=== PATIENT | male | born 1970 | race Caucasian/White ===

== ENCOUNTER 2018-12-04 08:03 | Emergency (ER) | payer OTHER ==
[~2018-12-04] VITALS: Ht 172.7 cm; Wt 97.2 kg
[2018-12-04 08:05] VITALS: BP 133/74; PULSE 80; RESP 18; Ht 172.7 cm; Wt 97.2 kg
[2018-12-04] MEDS ORDERED: NAPR-985 PO (09:58)
--- NOTE | 2018-12-04 10:06 | ERD ---
ER Documentation Chief Complaint Chief Complaint urination problem x3 days right rib pain HPI 48-year-old male presenting with dysuria and right rib pain. Patient states his has an infection he is worried he may have infection. He denies any ear pain to his flanks. Denies any back pain. Has not had any fevers. Denies any penile discharge. Denies testicular pain. Denies medical problems. NKDA. Surgical history denies. Social history denies ROS All systems reviewed and are negative except as per history of present illness. Medications Home Meds Active Scripts Naproxen* (Naprosyn*) 500 Mg Tablet, 500 MG PO BID PRN for PAIN AND/OR INFLAMMATION, #30 TAB Prov:VIOLET GUERRERO PA-C 12/04/18 PMhx/Soc Medical and Surgical Hx: pt denies Medical Hx, pt denies Surgical Hx Hx Alcohol Use: No Hx Substance Use: No Hx Tobacco Use: No FmHx Family History: No diabetes, No coronary disease, No other Physical Exam Vitals Vital Signs Date Temp Pulse Resp B/P (MAP) Pulse Ox O2 O2 Flow FiO2 Time Delivery Rate 12/04/18 97.5 80 18 133/74 99 08:05 (93) Physical Exam GENERAL: The patient is well-appearing, well-nourished, in no acute distress HEENT: Atraumatic. Conjunctivae are pink. Pupils equal, round, and reactive to light. There is no scleral icterus. Tympanic membranes clear bilaterally. Oropharynx clear. NECK: C-spine is soft and supple. There is no meningismus. There is no cervical lymphadenopathy. CHEST: Clear to auscultation bilaterally. There are no rales, wheezes or rhonchi. HEART: Regular rate and rhythm. No murmurs, clicks, rubs or gallops. ABDOMEN:Soft, nontender and nondistended. Good bowel sounds. No rebound or guarding. No gross peritonitis. No gross organomegaly or masses. BACK: No midline or flank tenderness. Results 24 hrs Laboratory Tests Test 12/04/18 08:45 Bedside Urine pH (LAB) 8.5 Bedside Urine Protein (LAB) 1+ Bedside Urine Glucose (UA) Negative Bedside Urine Ketones (LAB) Negative Bedside Urine Blood Negative Bedside Urine Nitrite (LAB) Negative Bedside Urine Leukocyte Esterase (L Negative Procedures/MDM DIAGNOSTIC IMAGING REPORT Patient: CHAPO CRUZ : 1970 Age: 48 Sex: M MR #: [id number] DOS: 12/04/18821 Ordering MD: BRANDON GUERRERO PA-C Location: [facility] Room/Bed: PROCEDURE: XR Chest. CLINICAL INDICATION: Chest pain TECHNIQUE: Single frontal view of the chest was obtained. COMPARISON: None FINDINGS: The heart is within normal limits. The thoracic aorta is calcified. The lungs are clear. There is no pleural effusion or pneumothorax. RPTAT: AA IMPRESSION: No acute disease. Calcified aorta consistent with atherosclerotic disease. DIAGNOSTIC IMAGING REPORT Patient: CHAPO CRZU : 1970 Age: 48 Sex: M MR #: [id number] DOS: 12/04/18821 Ordering MD: BRANDON GUERRERO PA-C Location: [facility] Room/Bed: PROCEDURE: Right wrist x-ray CLINICAL INDICATION: wrist pain TECHNIQUE: AP, scaphoid, lateral and oblique views of the wrist were obtained. COMPARISON: None FINDINGS: There is normal mineralization. No acute fracture is identified. Mild subluxation of the distal ulna is noted. There are no significant degenerative changes. There is mild soft tissue swelling. IMPRESSION: Mild subluxation of the distal ulna. No acute fracture. MDM: 8-year-old male presenting with pain. I have low suspicion for pneumonia. I have low suspicion for respiratory distress or hypoxia. I have low suspicion for pyelonephritis, nephrolithiasis, urinary tract infection or pelvic abnormality. I have low suspicion for acute abdominal emergency. Patient is discharged with strict ER precautions and told to follow-up with primary care within 1 to 2 days for close evaluation. Patient is told symptoms change or worsen to return immediately to the ER. All questions answered at discharge Departure Diagnosis: Primary Impression: Genitourinary symptoms Condition: Stable Patient Instructions: Dysuria, Uncertain Cause (Adult) Referrals: COMM[facility]ITY [facility] YOU HAVE RECEIVED A MEDICAL SCREENING EXAM AND THE RESULTS INDICATE THAT YOU DO NOT HAVE A CONDITION THAT REQUIRES URGENT TREATMENT IN THE EMERGENCY DEPARTMENT. FURTHER EVALUATION AND TREATMENT OF YOUR CONDITION CAN WAIT UNTIL YOU ARE SEEN IN YOUR DOCTORS OFFICE WITHIN THE NEXT 1-2 DAYS. IT IS YOUR RESPONSIBILITY TO M YASH AN APPOINTMENT FOR FOLOW-UP CARE. IF YOU HAVE A PRIMARY DOCTOR --you should call your primary doctor and schedule an appointment IF YOU DO NOT HAVE A PRIMARY DOCTOR YOU CAN CALL OUR PHYSICIAN REFERRAL HOTLINE AT IF YOU CAN NOT AFFORD TO SEE A PHYSICIAN YOU CAN CHOSE FROM THE FOLLOWING FORMERLY [facility] [address] [facility] [address] [facility] [facility] [address] [facility] [address] [facility] [address] [facility] [address] Additional Instructions: FOLLOW UP WITH YOUR PRIMARY CARE PHYSICIAN TOMORROW.Return to this facility if you are not improving as expected. VIOLET GUERRERO PA-C Dec 04, 2018 10:06
== END 2018-12-04 10:09 | disposition home or self-care (01) ==
LOC: FTE 08:03
DX: R39.9 Unspecified symptoms and signs involving the genitourinary system (principal); R07.81 Pleurodynia
CPT/HCPCS: 71045; 81003; 87591